=== PATIENT | male | born 1990 | race Caucasian/White ===

== ENCOUNTER 2016-11-13 03:40 | Emergency (ER) | payer OTHER ==
[~2016-11-13] VITALS: Ht 180.3 cm; Wt 95.3 kg
[2016-11-13 03:52] VITALS: BP 138/70
--- NOTE | 2016-11-13 03:57 | NUR ---
Sourav tran in [facility] - 11/13/16 at 0409 by THOMAS ER MD AT [facility]
--- NOTE | 2016-11-13 03:58 | NUR ---
AMBULATED TO ER BED 4
--- NOTE | 2016-11-13 03:59 | NUR ---
MICHAEL MILNER AT BED SIDE
--- NOTE | 2016-11-13 04:02 | NUR ---
26 Y/O HERE C/O EPIGASTRIC PAIN X 4 DAYS. DENIES ANY VOMITTING, FEVER OR DIARRHEA. STATES ONLY FEELING NAUSEATED SINCE THEN. PT STABLE RESTING IN BED.
[2016-11-13] MEDS ORDERED: DICYCLOMINE 20 MG/2 ML VIAL IM ONE (04:05)
[2016-11-13] MEDS ORDERED: ALUMINUM HYD/MAG/SIMETHICONE 30 ML, BELLADONNA/PHENOBARBITAL 10 ML, LIDOCAINE VISCOUS 2... PO ONE (04:05)
[2016-11-13 05:08] VITALS: BP 115/61
--- NOTE | 2016-11-13 05:08 | NUR ---
Patient discharged with v/s stable. Written and verbal after care instructions given and explained. Patient alert, oriented and verbalized understanding of instructions. Ambulatory with steady gait. All questions addressed prior to discharge. ID band removed. Patient advised to follow up with PMD. Rx of BENTYL given. Patient educated on indication of medication including possible reaction and side effects. Opportunity to ask questions provided and answered.
== END 2016-11-13 05:08 | disposition home or self-care (01) ==
LOC: MED 03:40
DX: R10.13 Epigastric pain (principal); R10.10 Upper abdominal pain, unspecified
CPT/HCPCS: 36415; 80053; 83690; 96372; 99284; J0500

== ENCOUNTER 2017-02-20 16:20 | Emergency (ER) | payer SELFPAY ==
--- NOTE | 2017-02-20 16:39 | NUR ---
PATIENT LEFT WITHOUT BEING SEEN BY DR. SU. NO FURTHER CARE PROVIDED FOR PATIENT.
== END 2017-02-20 16:39 | disposition left against medical advice (07) ==
LOC: MED 16:20
DX: Z53.21 Procedure and treatment not carried out due to patient leaving prior to being seen by health care provider (principal)

== ENCOUNTER 2018-09-28 11:32 | Emergency (ER) | payer SELFPAY ==
[~2018-09-28] VITALS: Ht 180.3 cm; Wt 104.3 kg
[2018-09-28 11:47] VITALS: BP 118/63
--- NOTE | 2018-09-28 11:52 | NUR ---
PATIENT AMB. TO BED #8
--- NOTE | 2018-09-28 12:00 | NUR ---
AAO PT WITH C/O RT SIDE ABDOMINAL PAIN SINCE THIS MORNING LIKE PINS/NEEDLE.DENIES NAUSEA/VOMITING. DENIES DIARRHEA, NO DIZZINESS. DENIES MEDS. HX; DENIES RX; DENIES
--- NOTE | 2018-09-28 12:14 | NUR ---
Patient being evaluated by physician at bedside.
[2018-09-28] MEDS ORDERED: NACL 0.9% 1,000 ML IV SCH (12:26)
[2018-09-28] MEDS ORDERED: NACL 0.9% 1,000 ML IV ONE (12:26)
[2018-09-28] MEDS ORDERED: KETOROLAC 30 MG/ML VIAL IVP ONE (12:30)
[2018-09-28 12:46] LABS: BASOPHILS # (AUTO) 0.1 K/uL (0.00-0.22); BASOPHILS % (AUTO) 1.3 % (0.0-2.0); EOSINOPHILS # (AUTO) 0.2 K/uL (0-0.4); EOSINOPHILS % (AUTO) 4.3 % (0.0-4.0); HEMOGLOBIN 15.3 g/dL (12.0-18.0); LYMPHOCYTES # (AUTO) 1.6 K/uL (2.0-11.5); LYMPHOCYTES % (AUTO) 38.8 % (20.5-51.1); MEAN CORPUSCULAR HEMOGLOBIN 30 pg (27-31); MEAN CORPUSCULAR HGB CONC 33 g/dL (33-37); MEAN CORPUSCULAR VOLUME 89.8 fL (80-94); MONOCYTES # (AUTO) 0.4 K/uL (0.8-1.0); MONOCYTES % (AUTO) 10.5 % (1.7-9.3); NEUTROPHILS # (AUTO) 1.8 K/uL (1.8-7.7); NEUTROPHILS % (AUTO) 45.1 % (42.2-75.2); PLATELET COUNT (AUTO) 193 K/uL (140-450); RED BLOOD CELL COUNT(AUTO) 5.12 MIL/uL (4.20-6.10); RED CELL DISTRIBUTION WIDTH 13.1 % (11.6-13.7)
[2018-09-28 13:06] LABS: ANION GAP 10.5 (8-16); CHLORIDE 105 mmol/L (98-107); GFR ARICAN-AMERICAN 116 mL/min (>90); GLUCOSE 90 mg/dL (74-106); POTASSIUM 4.5 mmol/L (3.5-5.1); SODIUM SERUM 143 mmol/L (136-145); UREA NITROGEN, BLOOD 13 mg/dL (7-18)
[2018-09-28 13:14] LABS: PROTHROMBIN TIME 9.7 secs (10.8-13.4)
[2018-09-28 13:17] LABS: APPEARANCE,URINE CLEAR (CLEAR); BILIRUBIN,URINE NEGATIVE (NEGATIVE); BLOOD, URINE TRACE-L (NEGATIVE); COLOR,URINE YELLOW (YELLOW); LEUKOCYTE ESTERASE ,URINE NEGATIVE (NEGATIVE); NITRITE, URINE NEGATIVE (NEGATIVE); PH,URINE 5.5 (5.0-9.0); UGLUCOSE NEGATIVE (NEGATIVE)
[2018-09-28 13:18] LABS: ALBUMIN 4.1 g/dL (3.4-5.0); AMYLASE 43 U/L (25-115); ASPARTATE AMINOTRANSFERASE 24 U/L (15-37); LIPASE 147 U/L (73-393); TOTAL BILIRUBIN 0.5 mg/dL (0.0-1.0)
[2018-09-28 13:19] LABS: BARBITURATE, URINE NEG. ng/ml (NEG <=200); BENZODIAZEPINE, URINE NEG. ng/mL (NEG <=200); CANNABINOID, URINE NEG. ng/mL (NEG <=50); COCAINE, URINE NEG. ng/mL (NEG <=300); OPIATE, URINE NEG. ng/mL (NEG <=2000); PHENCYCLIDINE SCREEN,URINE NEG. ng/mL (NEG <=25)
[2018-09-28 13:28] LABS: RBC,URINE 0-5 (RARE) /HPF (0-5); WBC,URINE 0-5 (RARE) /HPF (0-5)
[2018-09-28] MEDS ORDERED: LACTULOSE 20 GM/30 ML UDC PO ONE (13:40)
[2018-09-28 16:05] VITALS: BP 103/62
--- NOTE | 2018-09-28 16:05 | NUR ---
Patient discharged with v/s stable. Written and verbal after care instructions given and explained. Patient alert, oriented and verbalized understanding of instructions. Ambulatory with steady gait. All questions addressed prior to discharge. ID band removed. Patient advised to follow up with PMD. Rx of Nexium given. Patient educated on indication of medication including possible reaction and side effects. Opportunity to ask questions provided and answered.
== END 2018-09-28 16:05 | disposition home or self-care (01) ==
LOC: MED 11:32
DX: R10.31 Right lower quadrant pain (principal)
CPT/HCPCS: 36415; 74177; 80053; 80305; 81001; 82150; 83690; 85025; 85610; 96374; 99284; G0482; J1885; J7030; Q9967

== ENCOUNTER 2023-06-30 14:24 | Emergency (ER) | payer OTHER ==
[~2023-06-30] VITALS: Ht 180.3 cm; Wt 86.2 kg
[2023-06-30 14:41] VITALS: BP 109/62; PULSE 103; RESP 18; TEMP 98.4; O2SAT 100
[2023-06-30] MEDS ORDERED: KETOROLAC 30 MG/ML VIAL IM ONE (15:05)
== END 2023-06-30 15:49 | disposition home or self-care (01) ==
LOC: MED 14:24
DX: S46.912A Strain of unspecified muscle, fascia and tendon at shoulder and upper arm level, left arm, initial encounter (principal); X58.XXXA Exposure to other specified factors, initial encounter; Y93.89 Activity, other specified; Y92.89 Other specified places as the place of occurrence of the external cause; Y99.8 Other external cause status
CPT/HCPCS: 96372; 99283; J1885